=== PATIENT | male | born 1970 | race Asian ===

== ENCOUNTER 2020-01-11 13:13 | Emergency (ER) | payer OTHER ==
[~2020-01-11] VITALS: Ht 170.2 cm; Wt 68.0 kg
--- NOTE | 2020-01-11 14:30 | NUR ---
c/o sorethroat, fever, body aches, headache x 1 week got tested for covid "negative". PT AAOX4, VSS. RR EVEN & UNALBORED. DENIES CP, SOB, DIZZINESS, N/V, WEAKNESS AT THIS TIME. PT SEEN & EVAL'D BY DR. BAUER. WILL CONT TO MONITOR.
[2020-01-11] MEDS ORDERED: ACETAMINOPHEN ES 500 MG TABLET ONE (14:44)
[2020-01-11 14:46] LABS: BASOPHILS # (AUTO) 0.1 /CMM (0.0-0.2); BASOPHILS % (AUTO) 0.6 % (0.0-2.0); HEMATOCRIT 40 % (39-51); LYMPHOCYTES # (AUTO) 1.9 /CMM (0.8-4.8); LYMPHOCYTES % (AUTO) 8.1 % (20.0-44.0); MEAN CORPUSCULAR HGB CONC 33 g/dl (31.0-36.0); MEAN CORPUSCULAR VOLUME 88 fL (80-96); MONOCYTES # (AUTO) 1.1 /CMM (0.1-1.30); MONOCYTES % (AUTO) 4.6 % (2.0-12.0); NEUTROPHILS # (AUTO) 20.5 /CMM (1.8-8.9); NEUTROPHILS % (AUTO) 86.7 % (43.0-81.0); PLATELET COUNT (AUTO) 592 /CMM (150-450); RED BLOOD CELL COUNT(AUTO) 4.52 MIL/uL (4.5-6.0); WHITE BLOOD COUNT (AUTO) 23.7 K/uL (4.3-11.0)
[2020-01-11 14:55] LABS: CALCIUM, SERUM 8.8 mg/dL (8.5-10.1); POTASSIUM 4.2 mmol/L (3.5-5.1)
[2020-01-11 15:00] LABS: ALBUMIN 2.9 g/dL (3.4-5.0); BILIRUBIN,TOTAL 0.6 mg/dL (0.2-1.0); TOTAL PROTEIN, SERUM 7.7 g/dL (6.4-8.2)
[2020-01-11] MEDS: ACETAMINOPHEN ES 500 MG TABLET PO ONE (15:20)
--- NOTE | 2020-01-11 15:20 | NUR ---
MEDICATED PER ERMD ORDER, PT LUKE WELL. NAD NOTED AT THIS TIME.
[2020-01-11] MEDS ORDERED: IOHEXOL-350 100 ML VIAL IV ONE (18:12)
[2020-01-11] MEDS ORDERED: IOHEXOL-300 100 ML VIAL IV ONE (18:13)
[2020-01-11] MEDS ORDERED: IV NS 0.9% 250 ML IV ONE (18:13)
[2020-01-11] MEDS ORDERED: CT SWABBABLE VALVE TRANS SET 1 EA INFUS.SET MC ONE (18:13)
--- NOTE | 2020-01-11 19:33 | NUR ---
Patient discharged to home in stable condition. Written and verbal after care instructions given. Patient verbalizes understanding of instruction. IV removed. Catheter intact and site benign. Pressure and 4x4 applied to site. No bleeding noted.
[2020-01-11 19:34] VITALS: BP 138/62
== END 2020-01-11 19:34 | disposition home or self-care (01) ==
LOC: ER 13:13
DX: R50.9 Fever, unspecified (principal); R74.0 Nonspecific elevation of levels of transaminase and lactic acid dehydrogenase [LDH]; R16.0 Hepatomegaly, not elsewhere classified
CPT/HCPCS: 36415; 74177; 80053; 84145; 85025; 87040 ×2; 87070; 87804 ×2; 87880; 99285; J7050; Q9967; 86403-TC